=== PATIENT | female | born 1980 | race Caucasian/White ===

== ENCOUNTER → 2021-03-15 | Outpatient (CLI) | payer BC ==
[~2021-03-15] MED LIST: CLOMID; ESCT10T; LRT10T; RT-ALBUTEROL SULF 2.5 MG/3 ML PRE-MIX VIAL INH ONE
== END ==
LOC: RT 13:30
PROVIDERS: ATTEND Nurse Practitioner Family
DX: R06.02 Shortness of breath (principal); Z86.16 Personal history of COVID-19
CPT/HCPCS: 93306; 94060; 94726; 94729

== ENCOUNTER 2022-01-04 05:31 | Outpatient (CLI) | payer BC ==
[~2022-01-04] VITALS: Ht 160 cm; Wt 111.7 kg
[~2022-01-04 05:31] MED LIST changes: -RT-ALBUTEROL SULF 2.5 MG/3 ML PRE-MIX VIAL INH ONE
[2022-01-04] MEDS ORDERED: CLON0.5T25 PO (10:41)
[2022-01-04] MEDS ORDERED: RISP0.253 PO (10:41)
[2022-01-04] MEDS ORDERED: SPIR100T4 PO (10:41)
[2022-01-04] MEDS ORDERED: AMIT75TA2 PO (10:41)
[2022-01-04] MEDS ORDERED: LAMO200T5 PO (10:41)
[2022-01-04] MEDS ORDERED: HYDR-700 PO (10:41)
[2022-01-04] MEDS ORDERED: OMEP40CA6 PO (10:41)
[2022-01-04] MEDS ORDERED: DULO60CA59 PO (10:41)
[2022-01-04] MEDS ORDERED: ETHI1TAB18 PO (10:41)
== END 2022-01-04 12:38 | disposition home or self-care (01) ==
LOC: PREOP 05:31
PROVIDERS: ATTEND Surgery
DX: Z01.818 Encounter for other preprocedural examination (principal)

== ENCOUNTER 2022-01-12 12:36 | Day surgery (SDC) | payer BC ==
[~2022-01-12] VITALS: Ht 160 cm; Wt 111.7 kg
[~2022-01-12 12:36] MED LIST changes: +AMIT75TA2 PO; +CLON0.5T25 PO; +DULO60CA59 PO; +ETHI1TAB18 PO; +HYDR-700 PO; +LAMO200T5 PO; +OMEP40CA6 PO; +RISP0.253 PO; +SPIR100T4 PO
[2022-01-12] MEDS ORDERED: LACTATED RINGERS 1,000 ML IV STA (12:39)
[2022-01-12 12:45] VITALS: BP 131/94
[2022-01-12] MEDS ORDERED: HURRICAINE EXT TUBE (BENZOCAINE) XX PRN (12:45)
--- NOTE | 2022-01-12 14:44 | Progress Note-Pre Operative ---
Pre-Operative Progress Note H&P Reviewed The H&P was reviewed, patient examined and no changes noted. Date Seen by Provider: Jan 12, 2022 Time Seen by Provider: 14:44 Date H&P Reviewed: Jan 12, 2022 Time H&P Reviewed: 14:44 Pre-Operative Diagnosis: altered bowel function, epigastric pain PATRIA MUÑOZ DO Jan 12, 2022 14:44
[2022-01-12] MEDS ORDERED: ONDANSETRON 4 MG/2 ML (SDV) Z0FRAN ONE (15:06)
[2022-01-12] MEDS ORDERED: ONDANSETRON 4 MG/2 ML (SDV) Z0FRAN IVP ONE (15:15)
[2022-01-12] MEDS ORDERED: PROPOFOL INJECTION 50 ML IV ONE (15:22)
[2022-01-12] MEDS ORDERED: MIDAZOLAM 2 MG/2 ML (VERSED) VIAL ONE (15:22)
[2022-01-12 16:00] VITALS: BP 130/79
[2022-01-12 16:05] VITALS: BP 131/78
--- NOTE | 2022-01-12 16:13 | Anesthesia-General Post-Op ---
MAC Patient Condition Mental Status/LOC: Same as Preop Cardiovascular: Satisfactory Nausea/Vomiting: Absent Respiratory: Satisfactory Pain: Controlled Complications: Absent Post Op Complications Complications None Follow Up Care/Instructions Patient Instructions None needed. Anesthesiology Discharge Order Discharge Order Patient is doing well, no complaints, stable vital signs, no apparent adverse anesthesia problems. No complications reported per nursing. SELENA MAURER CRNA Jan 12, 2022 16:13
[2022-01-12] MEDS ORDERED: PANT40TA2 PO (16:20)
--- NOTE | 2022-01-12 16:21 | Discharge Inst-Simple/Standard ---
Discharge Inst-Standard Discharge Medications New, Converted or Re-Newed RX: Transmitted to Pharmacy Patient Instructions/Follow Up Plan of Care/Instructions/FU: 2 weeks Nacho Activity as Tolerated: Yes Discharge Diet: Regular Diet PATRIA MUÑOZ DO Jan 12, 2022 16:21
[2022-01-12 16:30] VITALS: BP 141/87
--- NOTE | 2022-01-12 21:40 | OPERATIVE REPORT ---
DATE OF SERVICE: 01/12/2022 PREOPERATIVE DIAGNOSES: Epigastric abdominal pain, altered bowel function. POSTOPERATIVE DIAGNOSES: Gastritis, normal colon. PROCEDURE: EGD with biopsies, colonoscopy. SURGEON: Patria Griffith DO ANESTHESIA: Per [employer]. ESTIMATED BLOOD LOSS: None. COMPLICATIONS: None. INDICATIONS: The patient is a 41-year-old female with altered bowel function and epigastric abdominal pain. She was recommended EGD and colonoscopy for further evaluation. She understands and wishes to proceed. Consent was signed in the chart. DESCRIPTION OF PROCEDURE: The patient was taken to the endoscopy suite, placed in left lateral recumbent position. Timeout was performed. Scope was inserted in the mouth, down the esophagus, stomach and into the duodenum without difficulty. No polyps, masses or ulcerations in the duodenum. Scope was slowly retracted back to stomach where it was further insufflated. Some evidence of gastritis present. Biopsy of the antrum and body were obtained. Scope was retroflexed noting no other pathology. Scope was returned to its normal position, slowly withdrawn to distal esophagus in normal appearance. Biopsy of the GE junction was obtained. Scope was slowly retracted back until completely remove, noting no other pathology. Digital rectal exam was performed. No palpable polyps, masses or ulcerations. Scope was inserted in the rectum and advanced all the way to cecum with minimal difficulty. Prep was adequate. Scope was then slowly retracted back. No polyps, masses or ulcerations within the cecum, ascending, transverse, descending and sigmoid colon. Once in the rectum, it was retroflexed noting no other pathology. Scope was returned to its normal position, slowly withdrawn until completely removed. The patient tolerated procedure well without any complications. She was taken to recovery room in stable condition. RECOMMENDATIONS: The patient will stop omeprazole and start Protonix 40 mg daily. We will await biopsy results. The patient will need repeat colonoscopy in 10 years unless family history of colon cancer, which would then be 5 years. If any issues before then be seen at that time. Job ID: [id number] DocumentID: [id number] Dictated Date: 01/12/2022 16:24:07 Phytopathology Teacher Date: 01/12/2022 21:40:01 Dictated By: PATRIA GRIFFITH DO
== END 2022-01-12 17:00 | disposition home or self-care (01) ==
LOC: ENDO 12:36
PROVIDERS: ATTEND Surgery
DX: K29.50 Unspecified chronic gastritis without bleeding (principal); R19.4 Change in bowel habit; Z79.899 Other long term (current) drug therapy; E66.01 Morbid (severe) obesity due to excess calories; Z68.41 Body mass index [BMI] 40.0-44.9, adult; Z86.16 Personal history of COVID-19; Z87.11 Personal history of peptic ulcer disease

== ENCOUNTER → 2022-02-07 | Outpatient (CLI) | payer BC ==
[~2022-02-07] MED LIST changes: +PANT40TA2 PO
== END ==
LOC: LAB FS 14:39
PROVIDERS: ATTEND Surgery
DX: B96.81 Helicobacter pylori [H. pylori] as the cause of diseases classified elsewhere (principal)
CPT/HCPCS: 36415; 86677